=== PATIENT | male | born 1940 | race Caucasian/White ===

== ENCOUNTER 2020-04-30 09:58 | Outpatient (CLI) | payer MEDICARE, OTHER, SELFPAY ==
--- NOTE | 2020-04-30 11:30 | CT_ITS ---
WS: [id number] CT CHEST: high-resolution CT. HISTORY: Pulmonary fibrosis TECHNIQUE: High resolution chest CT performed with inspiration and expiration and supine and prone po sitioning. All CT scans at [facility] use at least one of these dose optimization techniqu es: automated exposure control; mA and/or kV adjustment per patient size (includes targeted exams whe re dose is matched to clinical indication); or iterative reconstruction. CONTRAST: None DLP: 290.94 mGy.cm COMPARISON: 02/22/2020 Mild pulmonary hyperexpansion. Diffuse peripheral interstitial thickening and reticulation. Slightly more prominent at the lung bases with multi lobar areas of traction bronchiectasis. Bronchiectasis is more prominent at the lung bases. Interstitial reticulations extend to the pleura. There is a dense area of consolidation which is irregular shaped in the LEFT upper lobe. Additional areas of consolida tion in the anterior RIGHT upper lobe. No significant air retention on the expiratory sequence. No ch barbara in the upper lobe consolidations on prone positioning. Pulmonary artery is mildly dilated measuring 2.9 cm. Mild enlargement of the heart chambers. Mild ful lness at the hilar regions. Cannot exclude a small amount of adenopathy especially on the RIGHT measu ring up to 13 mm. No adenopathy was noted on a recent CT of 02/22/2020. Without IV contrast cannot be certain. Upper abdomen: Negative. Osseous structures: No destructive process. CT/CT chest wo con [id number] IMPRESSION: 1. Chronic interstitial lung disease. Pulmonary changes often seen with UIP. A dditional reticulations and consolidations in the upper lobes. These are not ty pical for UIP. Consider chronic sensitivity pneumonia and organizing pneumonia. 2. No pleural effusion.
--- NOTE | 2020-04-30 13:03 | PFTS_ITS ---
Date of Study:04/30/20 Date of Dictation: MECHANICS: Forced vital capacity (FVC) is normal. Forced expiratory volume in one second (FEV1) is normal. FEV1/FVC is normal. FLOW VOLUME LOOP: No peak expiratory flow with a forced expiratory maneuver. LUNG VOLUMES: Total lung capacity (TLC) is reduced. Residual volume (RV) is reduced. This does not appear to be accurate given the normal forced vital capacity. DIFFUSING CAPACITY FOR CARBON MONOXIDE: Normal. INTERPRETATION: The spirometry is normal. The lung volumes are likely measured incorrectly. Gas exchange (DLCO) is normal. MTDD
== END 2020-04-30 09:59 | disposition home or self-care (01) ==
PROVIDERS: PCP Nurse Practitioner Family; Visit Provider Internal Medicine Critical Care Medicine
DX: J44.9 Chronic obstructive pulmonary disease, unspecified (principal); J84.10 Pulmonary fibrosis, unspecified
CPT/HCPCS: 71250; 94010; 94726; 94729

== ENCOUNTER 2020-05-20 14:13 | Outpatient (CLI) | payer MEDICARE, OTHER, SELFPAY ==
[2020-05-20 15:25] VITALS: O2SAT 91
[2020-05-20 15:34] LABS: Basophils # 0.1 10^3/uL (0.0-0.1); Basophils % 0.8 %; Eosinophils # 0.3 10^3/uL (0.0-0.8); Eosinophils % 3.6 %; Hematocrit 49.4 % (42.0-52.0); Hemoglobin 15.9 g/dL (11.7-16.6); Lymphocytes # 2.6 10^3/uL (0.8-4.8); Lymphocytes % 27.8 %; Mean Corpuscular HGB Conc 32.2 g/dL (30.0-36.0); Mean Corpuscular Hemoglobin 29.2 pg (28.0-34.0); Mean Corpuscular Volume 90.6 fL (80-94); Mean Platelet Volume 11.7 fL (7.4-10.4); Monocytes # 0.8 10^3/uL (0.2-0.9); Monocytes % 8.7 %; Neutrophils # 5.55 10^3/uL (1.8-7.7); Neutrophils % 58.8 %; Nucleated Red Blood Cells % 0 %; Platelet Count 205 10^3/cmm (130-400); Red Blood Count 5.45 10^6/uL (4.1-5.3); Red Cell Distribution Width 13.8 % (12.1-15.1); White Blood Count 9.4 10^3/uL (4.0-10.0)
--- NOTE | 2020-05-20 15:34 | PFTS_ITS ---
Date of Study:05/20/20 Date of Dictation: MECHANICS: Forced vital capacity (FVC) is normal. Forced expiratory volume in one second (FEV1) is normal. FEV1/FVC is normal. FLOW VOLUME LOOP: Normal. LUNG VOLUMES: Total lung capacity (TLC) is reduced. Residual volume (RV) is reduced. DIFFUSING CAPACITY FOR CARBON MONOXIDE: Moderately reduced. INTERPRETATION: The spirometry is normal. The lung volumes are consistent with restrictive lung disease. Gas exchange (DLCO) is moderately reduced. MTDD
[2020-05-20 15:50] LABS: Alanine Aminotransferase 16 U/L (0-41); Albumin Level 4.4 g/dL (3.5-5.2); Alkaline Phosphatase 79 IU/L (40-130); Anion Gap 14.3 (5-19); Aspartate Amino Transferase 19 U/L (0-40); Blood Urea Nitrogen 21 mg/dL (8-23); C Reactive Protein 3.1 mg/L (0.0-4.9); Calcium 8.9 mg/dL (8.5-10.5); Carbon Dioxide 26 mmol/L (22-29); Chloride 105 mmol/L (98-107); Creatine Phosphokinase 119 U/L (39-308); Globulin 3.7 g/dL (1.3-4.6); Glucose 99 mg/dL (65-115); Osmolality Calculated 289 mOsm/kg (285-295); Potassium 4.3 mmol/L (3.5-5.1); Sodium 141 mmol/L (136-145); Total Bilirubin 0.7 mg/dL (0.15-1.2); Total Protein 8.1 g/dL (6.6-8.7)
[2020-05-20 16:42] LABS: Erythrocyte Sedimentation Rate 26 mm/hr (0-10)
[2020-05-21 12:30] LABS: Anti-Nuclear Antibody Screen NEGATIVE (NEGATIVE)
[2020-05-21 12:55] LABS: Aldolase 4.7 U/L (< OR = 8.1); SCL 70 <1.0 NEG AI (<1.0 NEG); SS A Ro Sjogrens Antibody <1.0 NEG AI (<1.0 NEG); SS-B/LA IGG <1.0 NEG AI (<1.0 NEG)
[2020-05-21 13:26] LABS: Cyclic Citrullinated Peptide <16 UNITS
== END 2020-05-20 14:14 | disposition home or self-care (01) ==
LOC: RT 14:18
PROVIDERS: PCP Nurse Practitioner Family; Visit Provider Internal Medicine Critical Care Medicine
DX: J84.10 Pulmonary fibrosis, unspecified (principal)
CPT/HCPCS: 80053; 82085; 82550; 85025; 85651; 86038; 86140; 86235; 86431; 94010; 94726; 94729

== ENCOUNTER → 2020-07-03 11:07 | Outpatient (BNVA) | payer MEDICARE, OTHER, SELFPAY | PROVIDERS: PCP Nurse Practitioner Family; Visit Provider Internal Medicine | DX: J84.10 Pulmonary fibrosis, unspecified (principal); Z11.59 Encounter for screening for other viral diseases; Z11.1 Encounter for screening for respiratory tuberculosis; Z79.899 Other long term (current) drug therapy; R76.8 Other specified abnormal immunological findings in serum; N18.9 Chronic kidney disease, unspecified; Z87.891 Personal history of nicotine dependence | CPT/HCPCS: 36415; 99203 ==

== ENCOUNTER 2020-07-03 13:17 | Outpatient (CLI) | payer MEDICARE, OTHER, SELFPAY ==
--- NOTE | 2020-07-03 13:27 | XRR_ITS ---
PROCEDURE INFORMATION: Exam: XR Right Hand Exam date and time: 07/03/2020 1:53 PM Age: 79 years old Clinical indication: Pain; Hand; Right; Additional info: Hand pain TECHNIQUE: Imaging protocol: XR Right hand. Views: 1 or 2 views. COMPARISON: No relevant prior studies available. FINDINGS: Bones/joints: There is multifocal osteoarthritis, most severely involving the 1st carpometacarpal joint. There is also involvement of the 2nd and 3rd metacarpophalangeal joint, the 2nd proximal interphalangeal joint, as well as the 2nd through 5th distal interphalangeal joints. No fracture. No dislocation. Soft tissues: No acute soft tissue abnormality. XR/XR hand RT 2V [id number] IMPRESSION: Osteoarthritis.
--- NOTE | 2020-07-03 13:27 | XRR_ITS ---
PROCEDURE INFORMATION: Exam: XR Left Hand Exam date and time: 07/03/2020 1:53 PM Age: 79 years old Clinical indication: Pain; Hand; Left; Additional info: Hand pain TECHNIQUE: Imaging protocol: XR Left hand. Views: 3 or more views. COMPARISON: No relevant prior studies available. FINDINGS: Bones/joints: There is multifocal osteoarthritis, most severely involving the 1st carpometacarpal joint. There is also involvement of the 2nd metacarpophalangeal joint, as well as the 2nd through 4th distal interphalangeal joints. No fracture. No dislocation. Soft tissues: No acute soft tissue abnormality. XR/XR hand LT 2V [id number] IMPRESSION: Osteoarthritis.
== END 2020-07-03 13:18 | disposition home or self-care (01) ==
LOC: RAD 13:20
PROVIDERS: PCP Nurse Practitioner Family; Visit Provider Internal Medicine
DX: M19.042 Primary osteoarthritis, left hand (principal); M19.041 Primary osteoarthritis, right hand; J84.10 Pulmonary fibrosis, unspecified; Z11.59 Encounter for screening for other viral diseases; Z11.1 Encounter for screening for respiratory tuberculosis; Z79.899 Other long term (current) drug therapy; R76.8 Other specified abnormal immunological findings in serum; N18.9 Chronic kidney disease, unspecified; Z87.891 Personal history of nicotine dependence
CPT/HCPCS: 73120; 80053; 86480; 86704; 86803; 86812; 87340

== ENCOUNTER → 2020-12-26 09:40 | Outpatient (BNVA) | payer MEDICARE, OTHER, SELFPAY | PROVIDERS: PCP Nurse Practitioner Family; Visit Provider Internal Medicine Critical Care Medicine | DX: Z01.812 Encounter for preprocedural laboratory examination (principal); Z20.822 Contact with and (suspected) exposure to COVID-19; R76.8 Other specified abnormal immunological findings in serum; J44.9 Chronic obstructive pulmonary disease, unspecified | CPT/HCPCS: 80053; 85025; 87635 ==

== ENCOUNTER 2020-12-31 09:20 | Outpatient (CLI) | payer MEDICARE, OTHER, SELFPAY ==
--- NOTE | 2020-12-31 09:30 | CT_ITS ---
WS: [id number] HIGH-RESOLUTION CT CHEST TECHNIQUE: Noncontrast high-resolution CT of the chest with inspiration, expiration, and prone imagin g Images. CLINICAL INFORMATION: Interstitial lung disease COMPARISON: CT chest April 30, 2020 DLP: 272.[address] scans at [facility] use at least one of these dose optimization techniques: automat ed exposure control; mA and/or kV adjustment per patient size (includes targeted exams where dose is matched to clinical indication); or iterative reconstruction. FINDINGS: Shallow inspiration today. Cardiomegaly. Coronary calcification. Again seen is diffuse interstitial t hickening consistent with interstitial lung disease more prominent in the mid and lower lungs with re ticular opacities and traction bronchiectasis. Multiple areas of traction bronchiectasis worse in the lung bases. Dense irregular area of consolidation left upper lobe with calcifications is unchanged. No significant subpleural honeycombing. No significant air trapping. CT/CT chest wo con [id number] IMPRESSION: 1. More shallow inspiration today with otherwise Stable findings of chronic in terstitial lung disease with findings suggesting UIP. No significant honeycombi ng. Findings are not significantly changed compared to previous. 2. No focal pneumonia or pleural fluid. 3. No mediastinal or hilar lymphadenopathy.
--- NOTE | 2020-12-31 11:23 | PFTS_ITS ---
Date of Study:12/31/20 Date of Dictation: MECHANICS: Forced vital capacity (FVC) is reduced. Forced expiratory volume in one second (FEV1) is reduced. FEV1/FVC is normal. FLOW VOLUME LOOP: Narrow. LUNG VOLUMES: Total lung capacity (TLC) is reduced. Residual volume (RV) is reduced. DIFFUSING CAPACITY FOR CARBON MONOXIDE: Severely reduced. INTERPRETATION: The pulmonary function tests are consistent with severe restrictive ventilatory defect. There is no significant postbronchodilator response. Lung volumes are consistent with severe restriction. Gas exchange (DLCO) is severely reduced. MTDD
== END 2020-12-31 09:21 | disposition home or self-care (01) ==
LOC: RAD 09:28
PROVIDERS: PCP Nurse Practitioner Family; Visit Provider Internal Medicine Critical Care Medicine
DX: J84.10 Pulmonary fibrosis, unspecified (principal)
CPT/HCPCS: 71250; 94060; 94726; 94729; J7611

== ENCOUNTER → 2021-03-11 10:35 | Outpatient (BNVA) | payer MEDICARE, OTHER, SELFPAY | PROVIDERS: PCP Nurse Practitioner Family; Visit Provider Internal Medicine Critical Care Medicine | DX: J84.10 Pulmonary fibrosis, unspecified (principal); N18.9 Chronic kidney disease, unspecified; J44.9 Chronic obstructive pulmonary disease, unspecified; J96.11 Chronic respiratory failure with hypoxia | CPT/HCPCS: 80053; 80061; 85025 ==

== ENCOUNTER → 2021-04-15 14:11 | Outpatient (BNVA) | payer MEDICARE, OTHER, SELFPAY | PROVIDERS: PCP Nurse Practitioner Family; Visit Provider Internal Medicine Critical Care Medicine | DX: J84.10 Pulmonary fibrosis, unspecified (principal); J96.11 Chronic respiratory failure with hypoxia; J44.9 Chronic obstructive pulmonary disease, unspecified | CPT/HCPCS: 80053; 85025 ==

== ENCOUNTER → 2021-05-08 09:41 | Outpatient (BNVA) | payer MEDICARE, OTHER, SELFPAY | PROVIDERS: PCP Nurse Practitioner Family; Visit Provider Internal Medicine Rheumatology | DX: J84.9 Interstitial pulmonary disease, unspecified (principal); J96.11 Chronic respiratory failure with hypoxia; J84.10 Pulmonary fibrosis, unspecified; Z79.899 Other long term (current) drug therapy; J44.9 Chronic obstructive pulmonary disease, unspecified; R91.1 Solitary pulmonary nodule; Z87.891 Personal history of nicotine dependence | CPT/HCPCS: 99214 ==

== ENCOUNTER 2021-05-13 10:20 | Outpatient (CLI) | payer MEDICARE, OTHER, SELFPAY ==
--- NOTE | 2021-05-13 11:00 | CT_ITS ---
WS: [id number] CT CHEST HIGH-RESOLUTION TECHNIQUE: High-resolution Noncontrast CT of the chest with coronal and sagittal reformatted images. Inspiratory, expiratory, prone imaging CLINICAL INFORMATION: R91.1 - Solitary pulmonary nodule COMPARISON: CT December 31, 2020, April 30, 2020, and February 22, 2020 DLP: 1327.[address] scans at [facility] use at least one of these dose optimization techniques: automat ed exposure control; mA and/or kV adjustment per patient size (includes targeted exams where dose is matched to clinical indication); or iterative reconstruction. FINDINGS: Chronic emphysematous changes. Again seen is diffuse interstitial thickening compatible wit h chronic interstitial lung disease more prominent in the mid and lower lungs bilaterally. Associated reticular opacities and traction bronchiectasis is similar to previous. Traction bronchiectasis with bronchovascular thickening worse in the lower lobes bilaterally. Dense fibrotic area of consolidatio n left upper lobe with calcifications is unchanged. Mild subpleural honeycombing in the mid and lower lungs bilaterally best appreciated on the prone imaging appears stable compared to previous but bett er appreciated today. Overall findings are stable compared to the most recent examination but appear progressed compared to April 30, 2020 No significant air trapping on the expiratory imaging. Normal GE junction. Fatty atrophy of the pancreas. Adrenal glands are normal. Cardiomegaly. Coronary calcification. CT/CT chest con [id number] IMPRESSION: 1. Stable findings of interstitial lung disease suspicious for UIP. Mild subpl eural honeycombing in the mid and lower lungs bilaterally better appreciated to day. Overall findings are stable compared to previous. 2. No mediastinal or hilar lymphadenopathy. 3. No no focal consolidation or pleural fluid.
== END 2021-05-13 10:21 | disposition home or self-care (01) ==
PROVIDERS: PCP Nurse Practitioner Family; Visit Provider Internal Medicine Rheumatology
DX: J84.9 Interstitial pulmonary disease, unspecified (principal); R91.1 Solitary pulmonary nodule
CPT/HCPCS: 71250

== ENCOUNTER → 2021-08-28 14:33 | Outpatient (BNVA) | payer MEDICARE, OTHER, SELFPAY | PROVIDERS: PCP Nurse Practitioner Family; Visit Provider Internal Medicine Rheumatology | DX: R76.8 Other specified abnormal immunological findings in serum (principal); R79.89 Other specified abnormal findings of blood chemistry; Z79.899 Other long term (current) drug therapy; J84.9 Interstitial pulmonary disease, unspecified; J84.10 Pulmonary fibrosis, unspecified; J96.11 Chronic respiratory failure with hypoxia; N18.9 Chronic kidney disease, unspecified; Z79.52 Long term (current) use of systemic steroids; Z87.891 Personal history of nicotine dependence; Z86.16 Personal history of COVID-19 | CPT/HCPCS: 99214 ==

== ENCOUNTER → 2021-12-10 10:33 | Outpatient (BNVA) | payer MEDICARE, OTHER, SELFPAY | PROVIDERS: PCP Nurse Practitioner Family; Visit Provider Internal Medicine Critical Care Medicine | DX: Z20.822 Contact with and (suspected) exposure to COVID-19 (principal); Z11.52 Encounter for screening for COVID-19 | CPT/HCPCS: 87635 ==

== ENCOUNTER 2021-12-16 09:38 | Outpatient (CLI) | payer MEDICARE, OTHER, SELFPAY ==
--- NOTE | 2021-12-16 11:00 | CT_ITS ---
WS: [id number] CT CHEST TECHNIQUE: Noncontrast CT of the chest with coronal and sagittal reformatted images. CLINICAL INFORMATION: Interstitial lung disease COMPARISON: CT 05/13/2021 and 12/31/2020. April 30, 2020 February 22, 2020 DLP: 1894.[address] scans at [facility] use at least one of these dose optimization techniques: automated e xposure control; mA and/or kV adjustment per patient size (includes targeted exams where dose is matc hed to clinical indication); or iterative reconstruction. FINDINGS: Some images degraded by breathing artifact. Diffuse interstitial thickening compatible with chronic interstitial lung disease more prominent in t he mid and lower lungs bilaterally unchanged compared to previous. Scattered reticulonodular opacitie s and traction bronchiectasis similar to the prior examination. Traction bronchiectasis with bronchov ascular thickening worse in the bilateral lower lobes. Dense fibrotic area of consolidation left uppe r lobe with calcifications is unchanged. 1.9 cm RIGHT upper lobe subpleural opacity with pleural plaq ue is unchanged. New 9 mm subpleural opacity in RIGHT lower lobe laterally. Recommend 3 month follow- up with chest CT. Mild subpleural honeycombing in the mid and lower lungs bilaterally appears stable compared to previo us. No significant air trapping on the expiratory imaging. No mediastinal or hilar lymphadenopathy. Normal caliber thoracic aorta. No axillary lymphadenopathy. Prior cholecystectomy. Normal GE junction. Fatty atrophy of the pancreas. Adrenal glands are normal. Cardiomegaly. Coronary calcification. CT/CT chest wo con [id number] IMPRESSION: 1. Stable findings of interstitial lung disease compatible with UIP. 2. Mild subpleural honeycombing in the mid and lower lungs bilate 3. No mediastinal or hilar lymphadenopathy. 4. Stable associated traction bronchiectasis and bronchovascular thickening. 5. New 9 mm subpleural opacity in RIGHT lower lobe laterally. Recommend 3 kisha h follow-up with chest CT. 6. Stable Fibrotic area of consolidation LEFT upper lobe with associated calci fication.
--- NOTE | 2021-12-16 13:41 | PFTS_ITS ---
Date of Study:12/16/21 Date of Dictation: MECHANICS: Forced vital capacity (FVC) is reduced. Forced expiratory volume in one second (FEV1) is reduced. FEV1/FVC is normal. FLOW VOLUME LOOP: Narrow with hesitation during forced expiratory maneuver LUNG VOLUMES: Total lung capacity (TLC) is reduced. Residual volume (RV) is reduced. DIFFUSING CAPACITY FOR CARBON MONOXIDE: Severely reduced. INTERPRETATION: The pulmonary function tests are consistent with moderately severe restriction Gas exchange (DLCO) is severely reduced. MTDD
== END 2021-12-16 09:39 | disposition home or self-care (01) ==
LOC: RT 09:42
PROVIDERS: PCP Nurse Practitioner Family; Visit Provider Internal Medicine Critical Care Medicine
DX: J84.9 Interstitial pulmonary disease, unspecified (principal); J47.9 Bronchiectasis, uncomplicated
CPT/HCPCS: 71250; 94010; 94726; 94729

== ENCOUNTER → 2021-12-30 11:09 | Outpatient (BNVA) | payer MEDICARE, OTHER, SELFPAY | PROVIDERS: PCP Nurse Practitioner Family; Visit Provider Internal Medicine Rheumatology | DX: R76.8 Other specified abnormal immunological findings in serum (principal); N18.9 Chronic kidney disease, unspecified; J84.9 Interstitial pulmonary disease, unspecified; J96.11 Chronic respiratory failure with hypoxia; J84.10 Pulmonary fibrosis, unspecified; R91.1 Solitary pulmonary nodule; Z79.52 Long term (current) use of systemic steroids; Z86.16 Personal history of COVID-19 | CPT/HCPCS: 99214 ==

== ENCOUNTER → 2022-03-11 13:04 | Outpatient (BNVA) | payer MEDICARE, OTHER, SELFPAY | PROVIDERS: Visit Provider Internal Medicine Critical Care Medicine | DX: J84.10 Pulmonary fibrosis, unspecified (principal); J96.11 Chronic respiratory failure with hypoxia; J98.4 Other disorders of lung; Z87.891 Personal history of nicotine dependence; Z99.81 Dependence on supplemental oxygen | CPT/HCPCS: 99214 ==